=== PATIENT | female | born 1985 | race Caucasian/White ===

== ENCOUNTER 2023-03-30 08:30 | Day surgery (SDC) | payer BC ==
[~2023-03-30 08:30] MED LIST: ACETAMINOPHEN TAB 500 MG TAB PO PRN; DEXAMETHASONE SOD PHOSPHATE 4 MG/ML 1 ML VIAL IV ONE; HEPARIN SODIUM,PORCINE/PF 5,000 UNIT/0.5 ML SYRINGE SQ PRN; HYDROmorphone 0.5 MG/0.5 ML SYRINGE IVP PRN; LACTATED RINGERS 1,000 ML IV SCH; MIDAZOLAM 2 MG/2 ML VIAL IV PRN; ONDANSETRON 4 MG/2 ML VIAL IVP ONE; Pre Op ABX Message 1 EACH MISC MISCELLANE ONE; SCOPOLAMINE 1 MG/72 HR PATCH TRANSDERM ONE
[2023-03-30] MEDS ORDERED: LIDOCAINE 1% INJ 10MG/ML (20 ML MDV) ONE (09:32)
[2023-03-30] MEDS ORDERED: KETOROLAC 15 MG/ML 1 ML VIAL ONE (09:32)
[2023-03-30] MEDS ORDERED: PROPOFOL 10 MG/ML 20 ML VIAL IV ONE (09:32)
[2023-03-30] MEDS ORDERED: fentaNYL (PF) 50 MCG/ML 2 ML AMP ONE (09:32)
[2023-03-30] MEDS ORDERED: GLYCOPYRROLATE 0.2 MG/ML 2 ML VIAL ONE (09:32)
[2023-03-30] MEDS ORDERED: ceFAZolin 1,000 MG VIAL ONE (09:32)
[2023-03-30] MEDS ORDERED: SODIUM CHLORIDE 0.9% 100 ML BAG ONE (09:32)
[2023-03-30] MEDS ORDERED: BUPIVACAINE (PF) 0.25% 30 ML VIAL SQ ONE ×2 (09:37→10:10)
[2023-03-30] MEDS ORDERED: SODIUM CHLORIDE 0.9% 100 ML with ceFAZolin 2,000 MG IV ONE ×2 (09:54)
[2023-03-30 10:41] VITALS: RESP 16; TEMP 96.8
[2023-03-30] MEDS ORDERED: NALOXONE 0.4 MG/ML 1 ML VIAL IV PRN (11:23)
[2023-03-30] MEDS ORDERED: HYDROcodone/APAP 5-325MG 1 EACH TAB PO PRN (11:23)
--- NOTE | 2023-03-30 11:26 | P.OP ---
Date of Procedure: 03/30/23 Procedure(s) Performed: PREOPERATIVE DIAGNOSIS: Abdominal wall mass POSTOPERATIVE DIAGNOSIS: Same PROCEDURE: Excision abdominal wall mass with closure SURGEON: Greg EBL: 2 mL ANESTHESIA: General COMPLICATIONS: None OPERATIVE PROCEDURE: Patient placed on the operative table in the supine position. The patient was placed under general anesthesia. The abdomen was prepped and draped sterilely. The previous Pfannenstiel incision was opened laterally. The saphenous tissues were divided using electrocautery. The patient's mass was palpated. This was able to be excised in 2 pieces using electrocautery. This extended into the fascia. After it was excised the fascia was reapproximated using a running #1 Vicryl suture. The saphenous tissues were closed using 3-0 Vicryl sutures. The skin was closed using a running 4-0 Monocryl stitch. Skin glue and sterile dressings were applied. Length of clos ure 5 cm. Size of mass 3.5 x 2.5 cm. DISPOSITION: Stable to recovery room
[2023-03-30 11:51] VITALS: BP 112/75; PULSE 82
== END 2023-03-30 11:47 | disposition home or self-care (01) ==
LOC: OR 08:30
PROVIDERS: ATTEND Surgery
DX: N80.C11 Endometriosis of the anterior abdominal wall, fascia and muscular layers (principal); K57.92 Diverticulitis of intestine, part unspecified, without perforation or abscess without bleeding; N28.9 Disorder of kidney and ureter, unspecified; F17.200 Nicotine dependence, unspecified, uncomplicated; Z88.7 Allergy status to serum and vaccine; Z79.899 Other long term (current) drug therapy
CPT/HCPCS: 22902; 81025; 88305; 88342; J2250; J1100; J2405; J0690; J2001; J3010; J1885; J2704; J1644; J0665

== ENCOUNTER → 2023-04-11 | Outpatient (CLI) | payer BC ==
--- NOTE | 2023-04-12 07:33 | MR ---
EXAMINATION TYPE: MR liver wo/w con DATE OF EXAM: 04/11/2023 3:08 PM CLINICAL INDICATION:Female, 37 years old with history of R93.2 ABNORMAL FINDINGS ON DX IMAGING OF [facility] ER AND; MERGED WITH [facility], Follow-up to Abnormal CT COMPARISON: CT from [facility]. TECHNIQUE: Multiplanar multi-sequence imaging was performed without contrast. Post contrast imaging was performed. Post IV contrast subtraction images were also submitted for review. IV Contrast: 6.5 cc Gadobutrol FINDINGS: LOWER CHEST: No gross irregularity. ABDOMEN Liver: No evidence for cirrhosis. Signal dropout on chemical shift artifact imaging is present. There is a concern along the falciform ligament seen on prior demonstrate signal dropout on chemical shift in phase imaging with very low signal. Findings compatible with benign focal fatty infiltration. No Suspicious enhancing observations. Gallbladder and Bile ducts: No evidence for ductal dilation, or biliary stricture or evidence of chol edocholithiasis. The gallbladder is within normal limits. Pancreas: No ductal dilation. No evidence for solid mass. Spleen: Normal for size. Adrenal glands: Unremarkable. Kidneys: No evidence for obstructive uropathy. No suspicious renal masses. Stomach and Bowel: No evidence for bowel wall thickening or evidence for obstruction.. Peritoneum: No evidence of pneumoperitoneum or free fluid. Vasculature: No aortic aneurysm. Musculoskeletal: The osseous structures appear intact. Lymph Nodes: No gross evidence for lymphadenopathy. Abdominal wall: Partially visualized left lower quadrant presumably biopsied endometriosis implant. IMPRESSION: Areas along the falciform ligament demonstrate signal dropout on chemical shift out of phase imaging and are most compatible with fatty infiltration. No suspicious solid masses. No acute abdominal proce ss.
== END | disposition home or self-care (01) ==
LOC: RADMRIMAIN 14:17
PROVIDERS: ATTEND Internal Medicine Geriatric Medicine
DX: R93.2 Abnormal findings on diagnostic imaging of liver and biliary tract (principal)
CPT/HCPCS: 74183; A9585